=== PATIENT | male | born 1980 | race Caucasian/White ===

== ENCOUNTER 2018-06-24 18:28 | Outpatient (REF) | payer OTHER, SELFPAY ==
[2018-06-24 21:24] LABS: Anion Gap 9.6 mmol/L (3-11); BUN 17 mg/dL (7-18); CO2 26.4 mmol/L (21.0-32.0); CREATININE 1.08 mg/dL (0.70-1.30); Calcium 9.3 mg/dL (8.5-10.1); Chloride 103 mmol/L (98-107); Cholesterol 223 mg/dL (50-200); Glucose 104 mg/dL (70-100); HDL Cholesterol 37 mg/dL (40-60); LDL CHOLESTEROL 156 mg/dL (<100); Potassium 4.6 mmol/L (3.5-5.1); Sodium 139 mmol/L (136-145); Triglyceride 277 mg/dL (30-150)
== END 2018-06-24 18:48 ==
LOC: NCHCN 18:28
PROVIDERS: PCP Specialist/Technologist Athletic Trainer; Visit Provider Specialist/Technologist Athletic Trainer
DX: E78.1 Pure hyperglyceridemia (principal)
CPT/HCPCS: 80048; 80061; 83721

== ENCOUNTER 2019-01-21 18:57 | Emergency (ER) | payer OTHER, SELFPAY ==
[2019-01-21 19:08] VITALS: BP 97/85; PULSE 55; RESP 16; TEMP 36.7; O2SAT 100
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
[2019-01-21] MEDS: Lidocaine 2% Multi-Dose 50 ML VIAL (19:47)
[2019-01-21] MEDS: Bupivacaine 0.5% Pres-Free 30 ML VIAL (19:48)
--- NOTE | 2019-01-21 19:56 | DI.VRAD_ITS ---
EXAM: XR Right Hand EXAM DATE/TIME: 01/21/2019 7:16 PM CLINICAL HISTORY: 38 years old, male; Injury or trauma; Injury history: RT hand crushed in woodsplitter, eval digits 2-4; Initial encounter; Crushing; Right; Injury date: 01/21/2019 TECHNIQUE: Imaging protocol: XR Right hand. Views: 3 or more views. COMPARISON: No relevant prior studies available. FINDINGS: Bones/joints: There is a transverse fracture through the distal metadiaphysis of the index finger middle phalanx with approximately complete shaft width volar displacement of the distal fracture fragment. There is a comminuted and minimally displaced fracture at the tuft of the middle finger distal phalanx. No other acutely displaced fractures are appreciated. No dislocation. Soft tissues: There is soft tissue swelling at the fracture sites. IMPRESSION: 1. Fracture through the distal metadiaphysis of the index finger middle phalanx. 2. Comminuted fracture at the tuft of the middle finger distal phalanx. Dictated and Authenticated by: Naga Carter MD. Ordering:SYD Weinstein MD
--- NOTE | 2019-01-21 20:10 | W.ED.GENAD ---
Discharge Plan Disposition Patient Disposition: HOME Condition: Stable Discharge Details Chief Complaint: Laceration Clinical Impression: Finger laceration, Finger fracture, Tendon injury Primary Care Provider: Caleb Santillan ED Provider: Js Win Home Meds and New Rx's Prescriptions: No Action No Known Home Meds RF: 0 Discharge Instructions Instructions: Finger Fracture (ED), Finger Laceration (ED) Additional Instructions: Do not eat anything after midnight. Dr. Helm will be calling you promptly at 7 AM, do not miss this call. Expect to be here at the hospital at 8 AM. You can take the single dose of Keflex in the morning. Do not take any other food or water otherwise. Take Tylenol and Motrin throughout the night, [place] as needed for pain. If you notice any significant changes in your symptoms, changes in color for your fingertips, please return immediately for reassessment. If your fingertip turns white or blue, return immediately for reassessment. Referrals: Thomas Helm MD [ [facility] STAFF PHYSICIAN] - Medical Decision Making This is a 38-year-old male who is [id number] who presents today for crush injury for his second third and fourth digit on his right nondominant hand. Ironically he states that this is actually as good hand as he is never had previous injuries or surgeries to this hand. Exam demonstrates a dorsal laceration at the middle phalanx on the index finger with rotation and a bit of hanging off. Surprisingly capillary refill was brisk. He also demonstrates notable tenderness at the distal tip of the middle finger with difficulty flexing and extending, suspecting notable tendon injury, he also has a similar injury pattern on the ring finger as well. Concern for tendon damage there as well. Patient's tetanus is been updated here. All 3 fingers were blocked with bupivacaine, total of 15 cc of a 50-50 mixture of 2% lidocaine and 0.5% bupivacaine. He had notable anesthesia after this. Open reduction was performed on the index finger, notable alignment was improved. 3 simple interrupted sutures with 5-0 Ethilon were placed for wound edge reapproximation for the dorsal laceration after a significant amount of time was spent washing out with chlorhexidine and normal saline with high-powered irrigation. Patient tolerated this well. After which all 3 fingers were splinted with a Ortho-Glass splint uniformly over the hand with minimal flexion at 15 to 20 degrees. Patient was given 500 mg of Keflex here, with a pill for 500 mg to take home tomorrow morning. I discussed the case with Dr. Helm, reviewed the images as well as the tendon and sensory findings. He does feel that the patient would benefit from surgery and potential pinning, as well as potential tendon repair for the other fingers. Dr. Helm will call the patient promptly tomorrow morning at 7, with suspected or surgery at 8 AM. He had no other recommendations at this time. The plan was made explicitly clear to the patient and his significant other who is at bedside. All questions were answered. Prior to discharge the distal component of all 3 fingers was rechecked, including the one that was openly reduced. All 3 demonstrated brisk capillary refill, and normal vascular exam. No other questions at this time. All questions were answered. I have extensively reviewed the treatment plan and discharge instructions with the patient and their family. I have addressed all patient concerns at this time. The patient and family was made aware of what symptoms to monitor for that would warrant a return to the emergency department. Discussed the plan with the patient and family, they demonstrate verbal understanding and agreement with our assessment and plan at this time. HPI General Date/Time Provider Initiated Documentation: 01/21/19 19:01. HPI Narrative: This is a 38-year-old male who is [id number], with a past medical history of multiple previous surgeries on the left hand. He presents today for trauma to the right hand. Patient got his index finger middle finger and ring finger stuck in a wood splitter. This occurred roughly 30 minutes prior to arrival. Tetanus is not up-to-date he has notable injury to the index finger, but pain in the other 2. Symptoms are made worse with movement. He is taking no medications in the meantime. He denies any other complaints or modifying factors. He does admit to notable numbness and tingling on 3 fingers. He denies any pain in the wrist, or pinky Related Data Home Medications Medication Instructions Recorded Confirmed Unknown [No Known Home Meds] 10/28/17 01/21/19 Allergies Allergy/AdvReac Type Severity Reaction Status Date / Time No Known Allergies Allergy Unverified 01/21/19 19:19 General Stated Complaint: Laceration ARIN: 3 Review of Systems Review of Systems All systems reviewed & are unremarkable except as noted in HPI and below PFSH Social History Smoking/Tobacco Use Status: Never Alcohol Intake: former Drug use: Never Do you feel safe at home: Yes Do you feel safe in your relationship?: Yes Exam Narrative Exam Narrative: 1.Const: Well-nourished, Well-developed, appearing stated age 2.Eyes: PERRL, no conjunctival injection, and symmetrical lids. 3.ENT: Atraumatic external nose and ears. Moist MM. Neck: Symmetric, trachea midline, No thyromegaly. 4.CVS: +S1/S2, No murmurs or gallops. Peripheral pulses 2+ and equal in all extremities. Brisk capillary refill in all extremities. 5.RESP: Unlabored respiratory effort. Clear to auscultation bilaterally. No wheezes rales or rhonchi 6.GI: Soft, Nontender/Nondistended, No hepatosplenomegaly. No guarding or rebound. 7.MSK: Normocephalic Right hand exam: Index finger demonstrates a notable laceration over the dorsal aspect over the middle phalanx. The finger tip is hanging off to the side and rotated. Surprisingly capillary refill is still present and brisk on the distal tip. Sensation is notably limited. He does have tenderness over the PIP joint. No significant tenderness at the MCP joint. Middle finger demonstrates notable bruising and tenderness over the distal phalanx tip. No subungual hematoma at this time. Notable difficulty flexing and extending at the DIP joint. Patient is able to flex and extend at the PIP and MCP joint. Sensation is also notably decreased in the distal tip, unable to differentiate two-point discrimination on the distal tip. Capillary refill is brisk suspect tendon damage. Ring finger demonstrates a small superficial laceration over the dorsal aspect by the DIP joint. Is able to flex and extend at the PIP and MCP joint but does demonstrate difficulty flexing and extending at the DIP joint. Suspect tendon damage No pain or tenderness over the remainder of the wrist. Thumb and pinky demonstrate good movement for flexion extension abduction and abduction, normal sensation throughout the hand and thumb to place two-point discrimination of the distal tip of the thumb and pinky. 8.Skin: Warm, Dry. Please see musculoskeletal 9.Neuro: horseradish grinder II-XII grossly intact. Please see muscular scale 10.Psych: (AAO) x3. Appropriate mood and affect Course Vital Signs Temperature 36.7 C 01/21/19 19:08 Pulse 55 L 01/21/19 19:08 Respiratory Rate 16 01/21/19 19:08 Blood Pressure 97/85 L 01/21/19 19:08 Pulse Oximetry 100 01/21/19 19:08 Temperature 36.7 C 01/21/19 19:08 Temperature Source Tympanic 01/21/19 19:08 Pulse 55 L 01/21/19 19:08 Respiratory Rate 16 01/21/19 19:08 Respiratory Effort 01/21/19 19:08 Blood Pressure 97/85 L 01/21/19 19:08 Pulse Oximetry 100 01/21/19 19:08 Oxygen Delivery Method Room Air 01/21/19 19:08 Oxygen Flow Rate 0 01/21/19 19:08 Pain Level 10 01/21/19 19:15
--- NOTE | 2019-01-21 20:14 | ED.GENADUL_ITS ---
Discharge Plan Disposition Patient Disposition: HOME Condition: Stable Discharge Details Chief Complaint: Laceration Clinical Impression: Finger laceration, Finger fracture, Tendon injury Primary Care Provider: Caleb Santillan ED Provider: Js Win Home Meds and New Rx's Prescriptions: No Action No Known Home Meds RF: 0 Discharge Instructions Instructions: Finger Fracture (ED), Finger Laceration (ED) Additional Instructions: Do not eat anything after midnight. Dr. Helm will be calling you promptly at 7 AM, do not miss this call. Expect to be here at the hospital at 8 AM. You can take the single dose of Keflex in the morning. Do not take any other food or water otherwise. Take Tylenol and Motrin throughout the night, [place] as needed for pain. If you notice any significant changes in your symptoms, changes in color for your fingertips, please return immediately for reassessment. If your fingertip turns white or blue, return immediately for reassessment. Referrals: Thomas Helm MD [ [facility] STAFF PHYSICIAN] - Medical Decision Making This is a 38-year-old male who is [id number] who presents today for crush injury for his second third and fourth digit on his right nondominant hand. Ironically he states that this is actually as good hand as he is never had previous injuries or surgeries to this hand. Exam demonstrates a dorsal laceration at the middle phalanx on the index finger with rotation and a bit of hanging off. Surprisingly capillary refill was brisk. He also demonstrates notable tenderness at the distal tip of the middle finger with difficulty flexing and extending, suspecting notable tendon injury, he also has a similar injury pattern on the ring finger as well. Concern for tendon damage there as well. Patient's tetanus is been updated here. All 3 fingers were blocked with bupivacaine, total of 15 cc of a 50-50 mixture of 2% lidocaine and 0.5% bupivacaine. He had notable anesthesia after this. Open reduction was performed on the index finger, notable alignment was improved. 3 simple interrupted sutures with 5-0 Ethilon were placed for wound edge reapproximation for the dorsal laceration after a significant amount of time was spent washing out with chlorhexidine and normal saline with high-powered irrigation. Patient tolerated this well. After which all 3 fingers were splinted with a Ortho-Glass splint uniformly over the hand with minimal flexion at 15 to 20 degrees. Patient was given 500 mg of Keflex here, with a pill for 500 mg to take home tomorrow morning. I discussed the case with Dr. Helm, reviewed the images as well as the tendon and sensory findings. He does feel that the patient would benefit from surgery and potential pinning, as well as potential tendon repair for the other fingers. Dr. Helm will call the patient promptly tomorrow morning at 7, with suspected or surgery at 8 AM. He had no other recommendations at this time. The plan was made explicitly clear to the patient and his significant other who is at bedside. All questions were answered. Prior to discharge the distal component of all 3 fingers was rechecked, including the one that was openly reduced. All 3 demonstrated brisk capillary refill, and normal vascular exam. No other questions at this time. All que stions were answered. I have extensively reviewed the treatment plan and discharge instructions with the patient and their family. I have addressed all patient concerns at this time. The patient and family was made aware of what symptoms to monitor for that would warrant a return to the emergency department. Discussed the plan with the patient and family, they demonstrate verbal understanding and agreement with our assessment and plan at this time. HPI General Date/Time Provider Initiated Documentation: 01/21/19 19:01 . HPI Narrative: This is a 38-year-old male who is [id number], with a past medical history of multiple previous surgeries on the left hand. He presents today for trauma to the right hand. Patient got his index finger middle finger and ring finger stuck in a wood splitter. This occurred roughly 30 minutes prior to arrival. Tetanus is not up-to-date he has notable injury to the index finger, but pain in the other 2. Symptoms are made worse with movement. He is taking no medications in the meantime. He denies any other complaints or modifying factors. He does admit to notable numbness and tingling on 3 fingers. He denies any pain in the wrist, or pinky Related Data Home Medications Medication Instructions Recorded Confirmed Unknown [No Known Home Meds] 10/28/17 01/21/19 Allergies Allergy/AdvReac Type Severity Reaction Status Date / Time No Known Allergies Allergy Unverified 01/21/19 19:19 General Stated Complaint: Laceration ARIN: 3 Review of Systems Review of Systems All systems reviewed & are unremarkable except as noted in HPI and below PFSH Social History Smoking/Tobacco Use Status: Never Alcohol Intake: former Drug use: Never Do you feel safe at home: Yes Do you feel safe in your relationship?: Yes Exam Narrative Exam Narrative: 1.Const: Well-nourished, Well-developed, appearing stated age 2.Eyes: PERRL, no conjunctival injection, and symmetrical lids. 3.ENT: Atraumatic external nose and ears. Moist MM. Neck: Symmetric, trachea midline, No thyromegaly. 4.CVS: +S1/S2, No murmurs or gallops. Peripheral pulses 2+ and equal in all extr emities. Brisk capillary refill in all extremities. 5.RESP: Unlabored respiratory effort. Clear to auscultation bilaterally. No wheezes rales or rhonchi 6.GI: Soft, Nontender/Nondistended, No hepatosplenomegaly. No guarding or rebound. 7.MSK: Normocephalic Right hand exam: Index finger demonstrates a notable laceration over the dorsal aspect over the middle phalanx. The finger tip is hanging off to the side and rotated. Surprisingly capillary refill is still present and brisk on the distal tip. Sensation is notably limited. He does have tenderness over the PIP joint. No significant tenderness at the MCP joint. Middle finger demonstrates notable bruising and tenderness over the distal phalanx tip. No subungual hematoma at this time. Notable difficulty flexing and extending at the DIP joint. Patient is able to flex and extend at the PIP and MCP joint. Sensation is also notably decreased in the distal tip, unable to differentiate two-point discrimination on the distal tip. Capillary refill is brisk suspect tendon damage. Ring finger demonstrates a small superficial laceration over the dorsal aspect by the DIP joint. Is able to flex and extend at the PIP and MCP joint but does demonstrate difficulty flexing and extending at the DIP joint. Suspect tendon damage No pain or tenderness over the remainder of the wrist. Thumb and pinky demonstrate good movement for flexion extension abduction and abduction, normal sensation throughout the hand and thumb to place two-point discrimination of the distal tip of the thumb and pinky. 8.Skin: Warm, Dry. Please see musculoskeletal 9.Neuro: radar scientist II-XII grossly intact. Please see muscular scale 10.Psych: (AAO) x3. Appropriate mood and affect Course Vital Signs Temperature 36.7 C 01/21/19 19:08 Pulse 55 L 01/21/19 19:08 Respiratory Rate 16 01/21/19 19:08 Blood Pressure 97/85 L 01/21/19 19:08 Pulse Oximetry 100 01/21/19 19:08 Temperature 36.7 C 01/21/19 19:08 Temperature Source Tympanic 01/21/19 19:08 Pulse 55 L 01/21/19 19:08 Respiratory Rate 16 01/21/19 19:08 Respiratory Effort 01/21/19 19:08 Blood Pressure 97/85 L 01/21/19 19:08 Pulse Oximetry 100 01/21/19 19:08 Oxygen Delivery Method Room Air 01/21/19 19:08 Oxygen Flow Rate 0 01/21/19 19:08 Pain Level 10 01/21/19 19:15
[2019-01-21] MEDS: HYDROcodone 5/Acetaminophen 325 TAB PO (20:33)
[2019-01-21] MEDS: Cephalexin 500 MG CAP PO ×2 (20:35)
== END 2019-01-21 20:50 | disposition home or self-care (01) ==
PROVIDERS: Emergency Provider Student in an Organized Health Care Education/Training Program; PCP Specialist/Technologist Athletic Trainer
DX: S67.22XA Crushing injury of left hand, initial encounter (principal); S62.631A Displaced fracture of distal phalanx of left index finger, initial encounter for closed fracture; S62.633A Displaced fracture of distal phalanx of left middle finger, initial encounter for closed fracture; W31.2XXA Contact with powered woodworking and forming machines, initial encounter
CPT/HCPCS: 26720; 26750; 90471; 73130

== ENCOUNTER 2019-01-22 05:38 | Observation (INO) | payer OTHER, SELFPAY ==
[2019-01-22 08:21] VITALS: BP 112/78; PULSE 61; RESP 16; TEMP 36.7; O2SAT 98
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
[2019-01-22] MEDS: Normal Saline Flush 10 ML SYR IVP (09:45)
[2019-01-22] MEDS: Lactated Ringers 1,000 ML 75 ML IV (10:19)
--- NOTE | 2019-01-22 10:24 | NUR.NOTE ---
Nursing Note: 1015: informed pt and that MD is delayed in OR with another pt and that his procedure may be 1-2 hours from this time.
[2019-01-22 11:28] VITALS: BP 124/72; PULSE 56; RESP 17; TEMP 36.2; O2SAT 98
--- NOTE | 2019-01-22 12:19 | DI.RAD_ITS ---
SYMPTOM/DIAGNOSIS: FRACTURE C-ARM FLUOROSCOPY RIGHT HAND: Fluoroscopy Time: 20 sec Fluoroscopy was provided in the O.R. for Dr. Helm. Please see procedure note for details.
--- NOTE | 2019-01-22 12:26 | DSE_ITS ---
Date of service: 01/22/19 Time of Service: 12:25 DS: Diagnosis Discharge Diagnosis (1) Crushing injury of right hand: Status: Acute (2) Open fracture of middle phalanx of right index finger: Status: Acute Discharge Plan Disposition Patient Disposition: HOME Condition: Good Discharge Details Reason For Visit: R HAND WOODSPLITTER INJURY Admit Date/Time: 01/22/19 05:38 Admit Provider: Thomas Helm Attending Provider: Thomas Helm Primary Care Provider: Caleb Santillan Hospital Course Hospital Course: Vin was brought to the hospital for surgical fixation of a wood splitter crush injury to the right hand. He tolerated the surgery well. Following the procedure he was notably stable and had good pain control. He is thus deemed safe for discharge home. Home Meds and New Rx's Prescriptions: New acetaminophen 500 mg tablet 1,000 mg PO Q8H PRN (Reason: pain) Qty: 90 RF: 3 ibuprofen 600 mg tablet 600 mg PO TID PRNQty: 90 RF: 3 oxycodone 5 mg tablet 5 mg PO Q6H PRN PRNQty: 12 RF: 0 cephalexin 500 mg capsule 500 mg PO QID Qty: 8 RF: 0 Discharge Instructions Additional Instructions: Activity: You should keep the hand elevated as much as possible for the first few days. You may perform light activities with the splint in place. Dressing/Cast: Your splint should stay in place at all times. Do NOT get it wet. You may loosen the RAVINDER wrap if you feel it is too tight and then rewrap m ore loosely. Medications: - You should take Tylenol and Ibuprofen for baseline pain control. - You have Oxycodone for breakthrough pain. - You may apply ice over the fingers. Follow-up: 10 days Referrals: Thomas Helm MD [ [facility] STAFF PHYSICIAN] - Activity:: Activity as Tolerated Equipment/Supplies:: No Equipment Needed Diet:: As Tolerated Discharge Orders Discharge Orders: Discharge Order (Routine); Ordered 01/22/19 Ordered By: Thomas Helm DS: Data Vitals/I&O Vitals and I&O: Vital Signs Temperature 36.7 C 01/22/19 08:21 Pulse 61 01/22/19 08:21 Pulse Rhythm Regular 01/22/19 08:21 Respiratory Rate 16 01/22/19 08:21 Respiratory Effort 01/22/19 08:21 Respiratory Depth Normal 01/22/19 08:21 Respiratory Pattern Normal 01/22/19 08:21 Blood Pressure 112/78 01/22/19 08:21 Pulse Oximetry 98 01/22/19 08:21 Oxygen Delivery Method Room Air 01/22/19 08:21 Oxygen Flow Rate 0 01/22/19 08:21 Pain Level 0 01/22/19 08:21 Comment 01/22/19 08:31 Intake & Output 01/21/19 01/22/19 01/22/19 23:59 11:59 23:59 Weight 120.202 kg Other: Urine Appearance Clear PFSH Social History Smoking/Tobacco Use Status: Never Alcohol Intake: former Drug use: Never Do you feel safe at home: Yes Do you feel safe in your relationship?: Yes
[2019-01-22] MEDS: Bupivacaine 0.5% Pres-Free 30 ML VIAL (12:58)
[2019-01-22 14:21] VITALS: BP 92/52; PULSE 64; RESP 18; TEMP 35.2; O2SAT 96
--- NOTE | 2019-01-22 14:21 | NUR.NOTE ---
Nursing Note: 1410: pt arrives to room 229 via stretcher from the OR. pt is drowsy but arouseable. pt is alert/oriented. pt has IV in LH with LR @ 75cc per hour. pt has eamon wrap with splint to right hand which exhibits a small amount of moisture through the eamon wrap. no evidence of blood. fingertips are pink to red. see vs for information. pt given water which he is able to drink without difficulty. pt's spouse updated by the MD at the bedside; all questions answered. pt will need note for work upon discharge. continue to monitor.
[2019-01-22] MEDS: Acetaminophen 500 MG TAB 1000 MG PO (14:46)
[2019-01-22 15:32] VITALS: BP 92/60; PULSE 56; RESP 16; TEMP 35.4; O2SAT 98
--- NOTE | 2019-01-24 11:00 | ROE_ITS ---
REPORT OF OPERATIVE PROCEDURE DATE OF SURGERY January 22, 2019 PREOPERATIVE DIAGNOSIS Right index finger partial amputation. POSTOPERATIVE DIAGNOSIS Right index finger partial amputation. SURGERY Open reduction and percutaneous pinning of a middle phalanx fracture of the right index finger, exten sor tendon mechanism repair and laceration closure. SURGEON Thomas Helm M.D. NITROGLYCERIN DISTRIBUTOR David Robbins PA-C ANESTHESIA General. ESTIMATED BLOOD LOSS Minimal. COMPLICATIONS None. DISPOSITION The patient was awakened from sedation and taken back to the hospital room in stable condition. INDICATIONS FOR PROCEDURE Vin is a 38-year old who got his right hand impaled by the mall of a wood splitter. He had a notable deformity of his index finger with a laceration. He was seen in the Emergency Department last night where he was diagnosed with a partial amputation of the right index finger complicated by extensor te ndon injury and middle phalanx fracture. He also had injury of his middle and ringer fingers, but the se were not open. His index finger was operative. He did have a perfused distal tip. After reviewing the treatment options with Vin, I recommended surgical stabilization with attempted repair of the ex tensor mechanism and any other vital structures which were deemed necessary at that time. I reviewed the risk of the procedure to include bleeding, infection, pain, stiffness, numbness, malun ion, nonunion, pin site infection, failure to heal needing further procedures, loss of extension, nee d to repeat procedures. Despite these risks, he elected to proceed. PROCEDURE DESCRIPTION Vin was greeted in the preoperative holding area. His identify was confirmed and the correct side wa s marked and his history and physical was updated prior to coming down stairs for the Operating Room. The consent was reviewed with the patient and signed prior to proceeding to the Operating Room. He was then taken back to the Operating Room, placed in the supine position. The right hand was place d on the hand table. A nonsterile tourniquet was placed high up on the right arm, but it was not used . A general anesthetic was begun. Prophylactic antibiotics in the form of cefazolin were given. A maksim eout was performed for safe surgery. The dressings on the right arm were removed. The hand was prepped with Betadine and then draped in a standard fashion. The incision of his right index finger was approximately 2 cm in length running obl iquely from the proximal aspect of the DIP joint radially to the distal aspect of the PIP joint ulnar ly. This was incised in a longitudinal fashion on the ulnar proximal aspect and the distal radial asp ect. With this opened up, the wound was thoroughly debrided. There was no gross debris or contaminati on. The fracture was easily identifiable. The fracture was cleaned of any debris and early fracture h ealing and hematoma. It was grossly unstable and did not want to stay in a reduced position. It took some effort to get this to stay in the reduced position. Two crossing 0.035 K-wires were then used t o hold it in this position. The wood splitter seemed to have removed some tissue. There was some impa ction of the bone, which deformed the bone and made alignment somewhat difficult to re-align complete ly and there was also what appeared to be some bone missing primarily from the ulnar aspect of the fr acture. Once this was pinned in position, it was confirmed to be in a good position on the x-ray. The se K-wires were started outside of the laceration. The extensor tendon was then further identified. The distal aspect was easily identifiable, but the tendon in between the two lateral bands and the di stal extensor tendon was frayed. Most of the tendon was not cut cleanly, but was in strands. The radi al lateral band was in better condition. Based on the location of the K-wires, I was unable to hypere xtend the finger, although the finger was in a neutral position. Using a #3-0 Ethibond, I reapproxima sanket the ulnar to radial lateral band. I then brought this tissue in approximation to the distal stump of the extensor tendon. Unfortunately, it was not the entire width of the tendon, there were only so me strands, as again, there almost appeared to be tissue loss in this area. Strands of the extensor tendon were in contact. This was then thoroughly irrigated. The incision was then closed with #4-0 Ny mitra. Large bites were used to obtain as much tissue as possible, to also help hold the finger in an extended position with this dorsal laceration and incision. The wires were bent and the Jurgan ball w as placed. Final x-rays were obtained. The wound was dressed with Xeroform, 4x4s and Webril. Since th e index, middle and ring finger were injured, I placed him into a volar resting splint in an intrinsi c Plus position. At the end of the case, all counts were correct. He was transferred back to the hosp ital room in stable condition.
== END 2019-01-22 15:47 | disposition home or self-care (01) ==
PROVIDERS: Admitting Provider Student in an Organized Health Care Education/Training Program; PCP Specialist/Technologist Athletic Trainer; Visit Provider Student in an Organized Health Care Education/Training Program
PROC: 0PST04Z Reposition Right Finger Phalanx with Internal Fixation Device, Open Approach (ICD-10-PCS; CPT 26735; principal; 2019-01-22 07:35)
PROC: 0PST04Z Reposition Right Finger Phalanx with Internal Fixation Device, Open Approach (ICD-10-PCS; CPT 26735; 2019-01-22 07:35)
DX: S67.21XA Crushing injury of right hand, initial encounter (principal); S62.620B Displaced fracture of middle phalanx of right index finger, initial encounter for open fracture; S66.320A Laceration of extensor muscle, fascia and tendon of right index finger at wrist and hand level, initial encounter; W31.89XA Contact with other specified machinery, initial encounter; G89.18 Other acute postprocedural pain
CPT/HCPCS: 26735; 26418; 99223; NC; 73120; G0378; J0690; J1885; J2250

== ENCOUNTER 2019-01-26 10:03 | Outpatient (CLI) | payer OTHER, SELFPAY ==
--- NOTE | 2019-01-26 10:02 | DI.RAD_ITS ---
SYMPTOMS/DIAGNOSIS: F/U OPEN REDUCTION AND PINNING OF RT INDEX FINGER RIGHT INDEX FINGER: Pin fixation of a fracture of the proximal phalanx of the index finger is identified. The fracture fragments in excellent apposition and alignment. At the margin of the image again noted is a fracture at the tuft of the middle phalanx.
== END 2019-01-26 10:23 ==
PROVIDERS: PCP Specialist/Technologist Athletic Trainer; Visit Provider Student in an Organized Health Care Education/Training Program
DX: S62.620B Displaced fracture of middle phalanx of right index finger, initial encounter for open fracture (principal)
CPT/HCPCS: 73140

== ENCOUNTER 2019-02-14 15:27 | Outpatient (CLI) | payer OTHER, SELFPAY ==
--- NOTE | 2019-02-14 15:30 | DI.RAD_ITS ---
SYMPTOM/DIAGNOSIS: F/U FX RIGHT INDEX FINGER: Three views were obtained and show a previously described pin fixation of fracture of the middle phalanx of the index finger with no gross interval change in alignment of the fracture fragments in comparison with previous examination of 01/26/19.
== END 2019-02-14 15:47 ==
PROVIDERS: PCP Specialist/Technologist Athletic Trainer; Visit Provider Physician Assistant
DX: S62.620D Displaced fracture of middle phalanx of right index finger, subsequent encounter for fracture with routine healing (principal)
CPT/HCPCS: 73140

== ENCOUNTER 2019-02-17 14:06 | Outpatient (CLI) | payer OTHER, SELFPAY ==
--- NOTE | 2019-02-17 10:49 | DI.RAD_ITS ---
SYMPTOMS/DIAGNOSIS: F/U RIGHT INDEX FINGER FX RIGHT INDEX FINGER: Three views. Comparison 02/14/19. The percutaneous pins have been removed. There is again seen a transverse fracture through the middle phalanx of the right index finger. Since the prior examination, the alignment has changed. There is no anterior dislocation of the distal fracture one-half shaft's width. There is associated soft tissue swelling.
== END 2019-02-17 14:26 ==
PROVIDERS: Visit Provider Student in an Organized Health Care Education/Training Program
DX: S62.620D Displaced fracture of middle phalanx of right index finger, subsequent encounter for fracture with routine healing (principal)
CPT/HCPCS: 73140

== ENCOUNTER 2019-02-23 13:58 | Outpatient (CLI) | payer OTHER, SELFPAY ==
--- NOTE | 2019-02-23 11:00 | DI.RAD_ITS ---
SYMPTOMS/DIAGNOSIS: F/U INJURY RIGHT INDEX FINGER: When compared with the previous study of 02/17, again noted is the fracture of the distal metaphysis of the middle phalanx. There is mild lateral angulation and lateral displacement of the distal fragment.
== END 2019-02-23 14:18 ==
PROVIDERS: PCP Specialist/Technologist Athletic Trainer; Visit Provider Student in an Organized Health Care Education/Training Program
DX: S62.620 Displaced fracture of middle phalanx of right index finger (principal)
CPT/HCPCS: 73140

== ENCOUNTER 2019-02-25 05:58 | Day surgery (SDC) | payer OTHER, SELFPAY ==
[2019-02-25 06:07] VITALS: BP 112/67; PULSE 62; RESP 18; TEMP 36.2; O2SAT 97
--- NOTE | 2019-02-25 06:30 | PDOC.DSDIS_ITS ---
Discharge Plan Disposition Patient Disposition: HOME Condition: Good Discharge Details Reason For Visit: RIF MIDDLE PHALANX FX Attending Provider: Thomas Helm Primary Care Provider: Caleb Santillan Home Meds and New Rx's Prescriptions: New hydrocodone-acetaminophen 5-325 mg tablet 1 tab PO Q4H PRN (Reason: pain) Qty: 10 RF: 0 Continued ibuprofen 600 mg tablet 600 mg PO TID PRN (Reason: pain) Qty: 90 RF: 3 acetaminophen 500 mg tablet 1,000 mg PO Q8H PRN (Reason: pain) Qty: 90 RF: 3 Discharge Instructions Additional Instructions: Activity: You should keep the hand/finger elevated as much as possible for the first few days. You may use the other fingers as tolerated but avoid trying to do too much too soon. You may perform light activities with the dressing in place. Dressing/Cast: Your dressing and splint should stay in place at all times. Do NOT get it wet for the first 3 days. You may remove the initial dressing at that time and keep it covered until your follow-up appointment. You may cover it with a large bandaid or gauze and a wrap. You do not have to keep using a splint but should at least have it luci-taped. Medications: - You should take Tylenol and Ibuprofen for baseline pain control. - You have been prescribed a stronger pain medication, Hydrocodone, for breakthrough pain. - You may apply ice, just double bag so it doesn't get wet. Follow-up: 7-10 days Referrals: Thomas Helm MD [ [facility] STAFF PHYSICIAN] - Activity:: Elevate Remove Dressings/Wound Care:: 72 hours Shower/Bathe:: 72 hours Diet:: As Tolerated Discharge Orders Discharge Orders: Discharge Order (Routine); Ordered 02/25/19 Ordered By: Thomas Helm DS: Diagnosis Discharge Diagnosis (1) Crushing injury of right hand: Status: Acute (2) Open fracture of middle phalanx of right index finger: Status: Acute
[2019-02-25] MEDS: Lactated Ringers 1,000 ML 80 ML IV (07:02)
[2019-02-25] MEDS: ceFAZolin 2 GM/50 ML BAG IVPB (07:04)
--- NOTE | 2019-02-25 08:30 | DI.RAD_ITS ---
SYMPTOM/DIAGNOSIS: ORIF FINGER FX RIGHT INDEX FINGER IN O.R.: Fluoroscopy Time: 5.5 sec, 3.9439 mGy. Fluoroscopy was utilized by Dr. Helm during the reduction and internal fixation of the fracture involving the middle phalanx of the right index finger. Please refer to the procedure report for complete details.
[2019-02-25] MEDS: Bupivacaine 0.5% Pres-Free 30 ML VIAL (08:31)
[2019-02-25 09:08] VITALS: BP 104/64; PULSE 66; RESP 16; TEMP 35.6; O2SAT 100
--- NOTE | 2019-02-28 10:05 | ROE_ITS ---
DATE OF PROCEDURE: February 25, 2019 PREOPERATIVE DIAGNOSIS: Right index finger open fracture, extensor tendon injury right index finger. POSTOPERATIVE DIAGNOSIS: Same. SURGERY: Open reduction and internal fixation of right index finger middle phalanx fracture with ext ensor retinacular repair and DIP extension pinning. SURGEON: Thomas Helm M.D. MAJOR ASSEMBLY LINEMAN: Leny Diaz PA-C ANESTHESIA: General with local anesthetic. ESTIMATED BLOOD LOSS: Minimal. COMPLICATIONS: None. DISPOSITION: The patient was awakened from anesthesia and taken to the PACU in a stable condition. INDICATION FOR PROCEDURE: Vin is a 38-year-old who suffered a wood splitter injury to his right bond d. He had an open fracture with loss of extensor tendon over the right index finger. This was irrig ated and debrided at the time of injury. It was cross-pinned and a tendon repair of the extensor mec hanism was attempted. The wound healed. The pins were in for 3 1/2 weeks. Without concern of not h ealing the pins were removed. He did well for a few days but then two days after the pins were pulle d, he felt something shift in the hand. It was then noted that the fracture had displaced. This was reduced in the office and then it displaced again. He still had a droop of his finger. Given this injury I did offer surgical stabilization. I reviewed the risks of the procedure to include bleeding , infection, pain, stiffness, damage to nerves and vessels, damage to muscles and tendons, need for r epeat procedures, hardware prominence, hardware failure. Despite these risks he elected to proceed. PROCEDURE DESCRIPTION: Vin was greeted in the preoperative holding area. His identity was confirme d and the correct side was identified and marked. The consent was reviewed with the patient and sign ed. The history and physical was updated. The patient was taken back to the Operating Room. He was placed in the supine position with the right hand on the hand table. A non-sterile tourniquet was p laced high up on the right arm where it stayed for sixty minutes. The dressing was removed then the right hand was prepped with ChloraPrep and draped in a standard fashion. A time-out was performed f or safe surgery. Prophylactic antibiotics in the form of Cefazolin were given. The limb was then exsanguinated and the tourniquet was inflated 275 mmHg. It stayed there for sixty minutes. The previous incision was then opened up sharply. This was taken down to the extensor tiss ue. The majority of the extensor tendon was noted to be damaged or lost at the previous surgery on t he day or injury. There was some reconstitution of this extensor mechanism through scarring. It was protected but it was quite friable. This was sharply debrided off of the underlying middle phalanx to expose the fracture. Subperiosteally this was exposed and the fracture was easily identifiable. The soft tissue over the dorsum of the middle phalanx was exposed all the way down to insertion of th e central slip. The fracture edges were debrided and cleaned. The wound was thoroughly irrigated. A manual reduction was performed. This visually seemed to be reduced quite nicely with the contour o f the dorsoradial ridge lining up between distal and proximal fragments. This was pinned for provisi onal stabilization. The x-ray was used to confirm the reduction, which showed some slight ulnar painting slation. The flexion and extension had been improved. This was manipulated quite a few times, but i t still seemed to just back to this position. In the current position it had excellent bony contact. Therefore, this was accepted. With the pin in place for stabilization, a 1.3 mm luciano plate was then placed. The plate was contoured and cut to length. It was then placed over the dorsal aspect of th e middle phalanx. It was held in position with a clamp and a single non-locking screw was placed in the oblong hole. This allowed some manipulation of the plate positioning. The plate was then moved into appropriate position where it was not too distal. X-ray was used to confirm appropriate positio jacqueline. I then placed three locking screws on the distal segment. These were confirmed to not be intr aarticular based on x-ray. With these on appropriate position, I then impacted the fracture and tigh tened the oblong screw hole. One additional non-locking screw was placed proximal to this oblong hol e. And the most-proximal screw was placed as a locking screw so as not to penetrate the far cortex a nd the flexor tendons. The wound was then irrigated. The fracture was stable. There was still a si gnificant amount of drooping. I was trying to reapproximate any extensor tissue that was available. There was some very small piece off the distal phalanx and some remnant tissue seen from the lateral bands and the extensor cespedes from the middle phalanx. However, given the droop of the finger this wa s very difficult to reapproximate. Therefore, I placed a pin from the distal phalanx into the middle phalanx, keeping the finger DIP joint in extension. This allowed reapproximation of some of the ext ensor tissue. A #2-0 FiberWire was used to reapproximate these tissues. The wound was irrigated. T he skin was then closed with a #4-0 Nylon. A digital block with 0.5% Bupivacaine was performed. At the end of the case all counts were correct. The wound was dressed with Xeroform, 4x4's and a confor m dressing. He was awakened from anesthesia and taken to the PACU in a stable condition.
== END 2019-02-25 09:24 | disposition home or self-care (01) ==
PROVIDERS: PCP Specialist/Technologist Athletic Trainer; Visit Provider Student in an Organized Health Care Education/Training Program
PROC: (CPT 26735; principal; 2019-02-25 07:00)
DX: S67.21XA Crushing injury of right hand, initial encounter (principal); S62.620 Displaced fracture of middle phalanx of right index finger; S56.421A Laceration of extensor muscle, fascia and tendon of right index finger at forearm level, initial encounter; W31.89XA Contact with other specified machinery, initial encounter
CPT/HCPCS: 26735; 26418; 73140; J0690; J2405

== ENCOUNTER 2019-03-02 11:13 | Outpatient (CLI) | payer OTHER, SELFPAY ==
--- NOTE | 2019-03-02 10:57 | DI.RAD_ITS ---
SYMPTOM/DIAGNOSIS: 1ST POST OP RIGHT INDEX FINGER: Three views. Comparison 02/25/19 There are side plates and screws seen transfixing the fracture involving the middle phalanx of the right index finger. A percutaneous pin is also seen transfixing the fracture in the distal interphalangeal joint. No change in alignment of the orthopaedic hardware is noted.
== END 2019-03-02 11:33 ==
PROVIDERS: PCP Specialist/Technologist Athletic Trainer; Visit Provider Student in an Organized Health Care Education/Training Program
DX: S62.632D Displaced fracture of distal phalanx of right middle finger, subsequent encounter for fracture with routine healing (principal)
CPT/HCPCS: 73140

== ENCOUNTER 2019-03-09 15:45 | Outpatient (CLI) | payer OTHER, SELFPAY ==
--- NOTE | 2019-03-09 15:42 | DI.RAD_ITS ---
SYMPTOMS/DIAGNOSIS: F/U RIGHT INDEX FINGER OPEN REDUCTION AND INTERNAL FIXATION RIGHT INDEX FINGER: The postoperative images demonstrate a plate and screw fixation device affixed to the fracture of the distal metaphysis of the middle phalanx, the fracture components in excellent position. A pin is noted traversing the distal phalanx, and interphalangeal joint and proximal and mid portion of the middle phalanx.
== END 2019-03-09 16:05 ==
PROVIDERS: PCP Specialist/Technologist Athletic Trainer; Visit Provider Student in an Organized Health Care Education/Training Program
DX: S62.620D Displaced fracture of middle phalanx of right index finger, subsequent encounter for fracture with routine healing (principal)
CPT/HCPCS: 73140

== ENCOUNTER 2019-03-23 15:55 | Outpatient (CLI) | payer OTHER, SELFPAY ==
--- NOTE | 2019-03-23 15:35 | DI.RAD_ITS ---
SYMPTOMS/DIAGNOSIS: F/U RIGHT INDEX FINGER OPEN REDUCTION AND INTERNAL FIXATION RIGHT INDEX FINGER: Comparison is made with February,. A fixation plate is seen in the middle phalanx. A pin remains in place through the distal to middle phalanx. The fracture and hardware alignment are unchanged.
== END 2019-03-23 16:15 ==
PROVIDERS: PCP Specialist/Technologist Athletic Trainer; Visit Provider Student in an Organized Health Care Education/Training Program
DX: S62.620B Displaced fracture of middle phalanx of right index finger, initial encounter for open fracture (principal)
CPT/HCPCS: 73140

== ENCOUNTER 2019-04-06 15:38 | Outpatient (CLI) | payer OTHER, SELFPAY ==
--- NOTE | 2019-04-06 15:40 | DI.RAD_ITS ---
SYMPTOM/DIAGNOSIS: F/U FRACTURE RIGHT INDEX FINGER: There is again seen a side plate and screws transfixing the fracture of the middle phalanx of the right index finger. A percutaneous pin is seen extending through both the middle and distal phalanges. No change in alignment of the orthopaedic hardware or fracture components is noted.
== END 2019-04-06 15:58 ==
PROVIDERS: PCP Specialist/Technologist Athletic Trainer; Visit Provider Student in an Organized Health Care Education/Training Program
DX: S62.620D Displaced fracture of middle phalanx of right index finger, subsequent encounter for fracture with routine healing (principal)
CPT/HCPCS: 73140

== ENCOUNTER 2019-04-25 15:21 | Outpatient (CLI) | payer OTHER, SELFPAY ==
--- NOTE | 2019-04-25 15:13 | DI.RAD_ITS ---
EXAM: XR FINGER RT INDEX CLINICAL HISTORY: F/U FX TECHNIQUE: Three views were obtained. COMPARISON: Comparison is made with 04/06/19. FINDINGS: Previously described fixation pin has been removed from the index finger and fixation plate and screw s remain with no gross interval change in alignment of the fracture fragments of the middle phalanx i n comparison with the previous examination. IMPRESSION:
== END 2019-04-25 15:41 ==
PROVIDERS: PCP Specialist/Technologist Athletic Trainer; Visit Provider Student in an Organized Health Care Education/Training Program
DX: S62.620D Displaced fracture of middle phalanx of right index finger, subsequent encounter for fracture with routine healing (principal)
CPT/HCPCS: 73140

== ENCOUNTER 2019-06-20 15:52 | Outpatient (CLI) | payer OTHER, SELFPAY ==
--- NOTE | 2019-06-20 15:49 | DI.RAD_ITS ---
EXAM: XR FINGER RT INDEX INDICATION: f/u index finger fx. COMPARISON: XR FINGER RT INDEX from 04/25/2019 TECHNIQUE: 2D digital imaging was performed. FINDINGS: There is again seen a sideplate and screws transfixing the fracture of the middle phalanx of the righ t index finger. There has been no change in alignment of the orthopaedic hardware or fracture compon ents compared to the prior examination. The fracture line is still well visualized. No new fracture s or dislocations are present.
== END 2019-06-20 16:12 ==
PROVIDERS: PCP Specialist/Technologist Athletic Trainer; Visit Provider Student in an Organized Health Care Education/Training Program
DX: S62.620D Displaced fracture of middle phalanx of right index finger, subsequent encounter for fracture with routine healing (principal)
CPT/HCPCS: 73140

== ENCOUNTER 2019-08-20 20:56 | Emergency (ER) | payer OTHER, SELFPAY ==
[2019-08-20] VITALS (13 sets, daily range): BP systolic 113–135; BP diastolic 56–79; PULSE 72–99; RESP 17–26; TEMP 36.8; O2SAT 91–99
--- NOTE | 2019-08-20 21:12 | ED.GENADUL_ITS ---
Discharge Plan Disposition Patient Disposition: [facility] Condition: Serious Discharge Details Chief Complaint: Trauma Clinical Impression: Intracranial hemorrhage Primary Care Provider: Caleb Santillan ED Provider: Oleg Lucio Home Meds and New Rx's Prescriptions: No Action ibuprofen 600 mg tablet 600 mg PO TID PRN (Reason: pain) Qty: 90 RF: 3 acetaminophen 500 mg tablet 1,000 mg PO Q8H PRN (Reason: pain) Qty: 90 RF: 3 Medical Decision Making 39 yo male with prior c spine fx per pt years ago comes in after he slipped from standing on ice this mroning and struck back of his head, unsure of loc and has had worsening headache and neck pain since. No chest pain, abd pain, extremity pain. He has pain in left lateral neck, no stepoffs. He struck the posterior head and has small 2cm abrasion. EOMI, no trauma to the face, full rom of mandible without malalignment. Given increasing pain will obtain ct head/cspine pt has intracranial hemorrhage on CT and possible fx of inferioranterior osteophyte of c6. Remains stable with gcs of 15, will consult with trauma at [facility] Dr. Garcia from trauma at [facility] accepts in transfer, pt remains stable gcs of 15 Differential Diagnosis Differential Diagnosis: tbi, concussion, strain, fx Imaging Data Radiologic Study: Attestation: I personally reviewed and interpreted this imaging study as follows: Imaging: CT Scan Radiologist's impression: IMPRESSION: 1. Acute intracranial hemorrhages as detailed above. 2. Nondisplaced obliquely oriented fracture of the left parietal bone and squamosal portion of the left temporal bone. IMPRESSION: Questionable nondisplaced acute fracture of the inferior anterior osteophyte of C6. No subluxation HPI General Mode of arrival: ambulatory . Date/Time Provider Initiated Documentation: 08/20/19 21:02 . Limitations to Documentation: no limitations . Information obtained by: patient . History of Present Illness 39 year old M presents to the emergency department with the chief complaint of head pain, described as moderate, Quality is described as aching, Patient started experiencing this hour(s) (12) and it has been constant. No relieving factors improve symptom(s), No exacerbating factors reported . Patient did receive the following treatments prior to arrival, NSAID Related Data Home Medications Medication Instructions Recorded Confirmed acetaminophen 500 mg tablet 1,000 mg PO Q8H PRN #90 tab 01/22/19 04/25/19 ibuprofen 600 mg tablet 600 mg PO TID PRN #90 tab 01/22/19 08/20/19 Previous Rx's Medication Instructions Recorded acetaminophen 500 mg tablet 1,000 mg PO Q8H PRN #90 tab 01/22/19 ibuprofen 600 mg tablet 600 mg PO TID PRN #90 tab 01/22/19 Allergies Allergy/AdvReac Type Severity Reaction Status Date / Time No Known Allergies Allergy Verified 08/20/19 21:09 General Stated Complaint: Trauma ARIN: 3 Review of Systems All systems reviewed & are unremarkable except as noted in HPI and below Constitutional Constitutional: Denies chills, Denies fever(s) and Denies weakness ENT Ears, Nose, Mouth, and Throat: Denies change in voice Cardiovascular Cardiovascular: Denies chest pain and Denies dyspnea Respiratory Respiratory: Denies dyspnea Gastrointestinal Gastrointestinal: Denies abdominal pain, Denies nausea and Denies vomiting Musculoskeletal Musculoskeletal: Denies joint swelling Neurologic Neurologic: Denies weakness [facility], [facility] Medical History (Updated 02/25/19 @ 06:12 by Joseph Brandt) Laceration of thumb with tendon involvement (Acute) PT. STATES THUMB LACERATION WITH TENDON REPAIR SURGERY IN 2010. Surgical History (Updated 03/09/19 @ 18:10 by Leny Diaz) Hx of cervical spine surgery (Acute) c6,c5,c7 Social History Smoking/Tobacco Use Status: Current every day Tobacco Type: smokeless tobacco Alcohol Intake: former Drug use: Never Substance use type: does not use Current gender identity: male Do you feel safe at home: Yes Do you feel safe in your relationship?: Yes Exam Const General: no acute distress Orientation: alert HENMT Head: no palpable skull fracture Ears: external ears normal General nose exam: external nose normal Mouth: moist mucous membranes Eyes General: appearance normal, both eyes and all related structures Neck Neck: normal visual inspection Resp Effort & Inspection: normal respiratory effort and able to speak in complete sentences Cardio Rate: regular rate Skin General skin exam: no rashes or lesions noted Neuro General: alert and oriented x3 Extrem General: normal to inspection Psych Mental Status: mental status grossly normal Course Vital Signs Vital signs: Vital Signs Temperature 36.8 C 08/20/19 21:06 Pulse 99 H 08/20/19 21:06 Respiratory Rate 18 08/20/19 21:06 Blood Pressure 135/79 08/20/19 21:06 Pulse Oximetry 99 08/20/19 21:06 Temperature 36.8 C 08/20/19 21:06 Temperature Source Skin 08/20/19 21:06 Pulse 99 H 08/20/19 21:06 Respiratory Rate 18 08/20/19 21:06 Blood Pressure 135/79 08/20/19 21:06 Blood Pressure Position Sitting 08/20/19 21:06 Pulse Oximetry 99 08/20/19 21:06 Oxygen Delivery Method Room Air 08/20/19 21:06 Oxygen Flow Rate 0 08/20/19 21:06 Pain Level 10 08/20/19 21:06
--- NOTE | 2019-08-20 21:22 | DI.CT_ITS ---
EXAM: CT HEAD CERVICAL SPINE WO CLINICAL HISTORY: pain s/p fall COMPARISON: No exams were available for comparison FINDINGS: CT head: There is acute intracranial hemorrhage noted. There is an acute subdural hemorrhage along the left f rontal parietal, occipital and temporal bones. It measures 5 millimeters in maximal thickness. The subacute hemorrhage extends to involve the tentorium cerebelli measuring 4 millimeters in thickness. There is also extension into the interhemispheric fissure which measures 5 millimeters in thickness . There is resultant effacement of the adjacent sulci in the left frontal, temporal and parietal lob es. No significant midline shift is appreciated. There is a small amount of subarachnoid hemorrhage best appreciated in the left temporal lobe. There is an area of encephalomalacia involving the right frontal lobe. The ventricles are intact. The basilar cisterns are patent. There is an oblique fracture which is nondisplaced beginning posteriorly in the left parietal bone, e xtending inferiorly and anteriorly to involve the left temporal bone. There is mucosal thickening in the maxillary sinuses bilaterally, right greater than left. The remai jacqueline visualized paranasal sinuses are clear. There is soft tissue swelling over the left scalp. CT cervical spine: There is patient motion artifact. Postsurgical changes are seen in the cervical spine from C3 throug h C6. Degenerative changes are seen in the spine. The odontoid is intact. The lateral masses appea r well aligned. There is a lucency seen through the base of an anterior osteophyte at the inferior e ndplate of C6. This may represent a nondisplaced fracture. No other fracture or subluxation is iden tified. The prevertebral soft tissues are unremarkable. The lung apices are clear. IMPRESSION: 1. Acute intracranial hemorrhage as described above. There is subarachnoid and subdural hemorrhage p resent. 2. Nondisplaced fracture involving the left parietal and temporal bones as described above. 3. Soft tissue swelling over the left scalp. 4. Lucency through the base of an anterior osteophyte at C6. This may represent a nondisplaced fract ure.
[2019-08-20] MEDS: Acetaminophen 500 MG TAB 1000 MG PO (21:30)
[2019-08-20] MEDS: fentaNYL 100 MCG/2 ML VIAL IVP (21:50)
--- NOTE | 2019-08-20 21:53 | DI.VRAD_ITS ---
PROCEDURE INFORMATION: Exam: CT Head Without Contrast Exam date and time: 08/20/2019 9:12 PM Age: 39 years old Clinical indication: Injury or trauma; Initial encounter; Blunt trauma (contusions or hematomas); Prior surgery; Patient HX: S/P fall TECHNIQUE: Imaging protocol: Computed tomography of the head without contrast. COMPARISON: No relevant prior studies available. FINDINGS: Brain: Small amount left temporal acute subarachnoid hemorrhage. Acute subdural hematoma layering along the interhemispheric fissure measuring 5 mm in thickness. Acute subdural hematoma layering along the left tentorium cerebelli measuring 4 mm. Left holohemispheric acute subdural hematoma measuring 5 mm in thickness. Minimal mass effect on the left cerebrum with no appreciable midline shift. Inferior right frontal encephalomalacia. No evidence for acute transcortical infarct. No acute intraparenchymal hemorrhage. Basal cisterns are patent. Ventricles: Normal. No ventriculomegaly. Bones/joints: Nondisplaced obliquely oriented fracture of the left parietal bone and squamosal portion of the left temporal bone. Sinuses: Mucosal thickening involving the maxillary sinuses. Mastoid air cells: Visualized mastoid air cells are well aerated. Soft tissues: Left scalp swelling. IMPRESSION: 1. Acute intracranial hemorrhages as detailed above. 2. Nondisplaced obliquely oriented fracture of the left parietal bone and squamosal portion of the left temporal bone. THIS REPORT CONTAINS FINDINGS THAT MAY BE CRITICAL TO PATIENT CARE. The findings were verbally communicated via telephone conference with Oleg Lucio at 9:45 PM EST on 08/20/2019. The findings were acknowledged and understood. PROCEDURE INFORMATION: Exam: CT Cervical Spine Without Contrast Exam date and time: 08/20/2019 9:12 PM Age: 39 years old Clinical indication: Injury or trauma; Initial encounter; Blunt trauma (contusions or hematomas); Prior surgery; Patient HX: S/P fall TECHNIQUE: Imaging protocol: Computed tomography images of the cervical spine without contrast. COMPARISON: No relevant prior studies available. FINDINGS: Vertebrae: Questionable nondisplaced acute fracture of the inferior anterior osteophyte of C6. No subluxation. No spondylolisthesis. The atlantooccipital and atlantoaxial articulations are intact. Cervical spine fusion hardware. Facet joint alignments are maintained. Discs/Spinal canal/Neural foramina: Age-related degenerative disc disease. Multilevel degenerative changes of the cervical spine. Other bones/joints: Occipital condyles are intact. Soft tissues: Unremarkable. Lungs: Lung apices are normal. IMPRESSION: Questionable nondisplaced acute fracture of the inferior anterior osteophyte of C6. No subluxation. The findings were verbally communicated via telephone conference with Oleg Lucio at 9:45 PM EST on 08/20/2019. The findings were acknowledged and understood. Dictated and Authenticated by: Piotr Núñez MD. Ordering:DIVINE Dejesus MD
[2019-08-20] MEDS: Normal Saline Flush 10 ML SYR IVP (22:08)
[2019-08-20 22:18] LABS: Abs Immature Grans 0.04 k/cumm (0.0-0.09); Absolute Basophil Count 0.01 k/cumm (0.0-0.2); Absolute Eosinophil Count 0.01 k/cumm (0.0-0.7); Absolute Lymphocyte Count 1.66 k/cumm (1.2-3.4); Absolute Monocyte Count 0.75 k/cumm (0.11-0.7); Basophils % 0.1; Eosinophils % 0.1; HGB 15.1 g/dL (13.5-17.5); Immature Grans % 0.4 %; Lymphocytes % 14.6; Mean Corp. HGB Concentration 34.3 g/dL (32.0-36.0); Mean Corpuscular Hemoglobin 29.4 pg (27.0-33.0); Mean Corpuscular Volume 85.6 fL (80-95); Mean Platelet Volume 8.9 fL (8.0-11.0); Monocytes % 6.6; Neutrophils % 78.2; Platelet Count 380 x1000/uL (130-400); RBC 5.14 m/cumm (4.50-6.00); RBC Distribution Width 13.4 % (11.8-14.1); White Blood Cell Count 11.38 k/cumm (4.4-10.8)
[2019-08-20] MEDS: HYDROmorphone 2 MG/ML VIAL 1 MG IVP (22:24)
[2019-08-20] MEDS: Ondansetron 4 MG/2 ML VIAL IVP (22:25)
[2019-08-20 22:28] LABS: ALT 54 U/L (16-63); AST 21 U/L (15-37); Albumin 4.3 g/dL (3.4-5.0); Alkaline Phosphatase 82 U/L (46-116); Anion Gap 11.8 mmol/L (3-11); BUN 15 mg/dL (7-18); Bilirubin, Total 0.7 mg/dL (0.2-1.0); CO2 25.2 mmol/L (21.0-32.0); CREATININE 0.95 mg/dL (0.70-1.30); Calcium 9.1 mg/dL (8.5-10.1); Chloride 103 mmol/L (98-107); Glucose 113 mg/dL (74-106); PTT Activated 25.1 sec (21.0-31.4); Potassium 4.1 mmol/L (3.5-5.1); Prothrombin Time 10.5 sec (9.3-11.0); Sodium 140 mmol/L (136-145)
[2019-08-20 22:38] LABS: ETHANOL BLOOD < 3.0 mg/dL (<3)
[2019-08-20] MEDS: HYDROmorphone 2 MG/ML VIAL (22:58)
== END 2019-08-20 23:05 | disposition short-term general hospital (02) ==
PROVIDERS: Emergency Provider Emergency Medicine; PCP Specialist/Technologist Athletic Trainer
DX: M54.2 Cervicalgia (principal); R51 Headache; S09.90XA Unspecified injury of head, initial encounter; S06.5X0A Traumatic subdural hemorrhage without loss of consciousness, initial encounter; S06.6X0A Traumatic subarachnoid hemorrhage without loss of consciousness, initial encounter; S02.0XXA Fracture of vault of skull, initial encounter for closed fracture; S02.19XA Other fracture of base of skull, initial encounter for closed fracture; W00.0XXA Fall on same level due to ice and snow, initial encounter
CPT/HCPCS: 36415; 80053; 96374; 96375; 99285; 70450; 72125; 80320; 85025; 85610; 85730; J2405; J3010; J3490; L0172

== ENCOUNTER 2019-09-01 19:04 | Emergency (ER) | payer OTHER, SELFPAY ==
[2019-09-01 19:12] VITALS: BP 132/80; PULSE 74; RESP 17; TEMP 39.9; O2SAT 97
--- NOTE | 2019-09-01 19:29 | ED.GENADUL_ITS ---
Discharge Plan Disposition Patient Disposition: HOME Condition: Good Discharge Details Chief Complaint: Orthopedic Clinical Impression: Left thigh pain Primary Care Provider: Caleb Santillan ED Provider: Js Win Home Meds and New Rx's Prescriptions: New hydrocodone-acetaminophen [Waverly] 10-325 mg tablet 1 tab PO Q8H PRN (Reason: pain) Qty: 7 RF: 0 Discontinued acetaminophen 500 mg tablet 1,000 mg PO Q8H PRN (Reason: pain) Qty: 90 RF: 3 hydrocodone-acetaminophen 5-325 mg Tablet 1 tab PO Q6H PRN PRNRF: 0 Discharge Instructions Instructions: Leg Pain (ED) Additional Instructions: Please follow-up tomorrow for your ultrasound of your leg. Please take the Waverly as needed. Please use a heating pad to help with the pain. If you notice any worsening of your symptoms, or any new symptoms such as vomiting, diarrhea, fever, chills, shortness of breath, chest pain, numbness, weakness, or fainting , please return immediately to the emergency department for reevaluation. Please follow up with your primary care provider as soon as possible for reassessment and reevaluation. As always, it was a pleasure participating in your medical care today. Referrals: Caleb Santillan [Primary Care Provider] - Discharge Data Discharge Date/Time-TO BE ENTERED AT DEPARTURE: 09/01/19 21:35 Medical Decision Making This is a 39-year-old male with a past medical history of previous i ntracranial hemorrhage less than 2 weeks that occurred after a fall, for which she was transferred to [facility], had serial imaging studies, eventually she was discharged a few days ago. When he fell on the he struck his head, and had an intracranial bleed, he was transferred to [facility] and managed there. Since then he has had pain in his left jaw, as well as pain in his left thigh going from his left hip to his left knee. Is worse with ambulation and movement. No pain when just lying calmly. He has not taken any of his prescribed narcotics at this time. He denies any associated numbness or tingling. Exam is notably unremarkable, no evidence of redness warmth swelling or abnormality. He has normal strength normal sensation. No signs of cauda equina syndrome. No evidence of cellulitis or infection. Normal vascular exam peripherally with dorsalis pedis +2 bilaterally, and brisk capillary refill and normal sensation. Bedside limited ultrasound shows no evidence of significant DVT, however this is certainly just a limited exam and not complete. We will get x-rays to evaluate for acute fracture and reassess. And schedule outpatient ultrasonography to be performed during the day. X-ray results per virtual radiology show no evidence of acute fracture of the thigh, hip, or mandible. After 4 mg of IM morphine the patient is feeling much better. He is still shows no evidence of significant neurologic or vascular deficit. He feels well. Do feel that he is stable to go home. No clinical evidence of compartment syndrome, all compartments are soft. He may have a small intramuscular hematoma that cannot be visualized or seen now. No clinical evidence for CT imaging at this time. We will schedule an outpatient DVT ultrasound of his left extremity tomorrow for formal assessment in addition to the limited bedside assessment as completed tonight. We did discuss risks and benefits of anticoagulation therapy in the meantime, and with the patient's recent brain bleed this would be a notable contraindication. With no other concerning physical exam red flags I do feel they can discharge. Patient will be discharged home with close follow-up. Discussed red flags which return. Will prescribe a very small amount of Waverly for help with the pain. I have extensively reviewed the treatment plan and discharge instructions with the patient and their family. I have addressed all patient concerns at this time. The patient and family was made aware of what symptoms to monitor for that would warrant a return to the emergency department. Discussed the plan with the patient and family, they demonstrate verbal understanding and agreement with our assessment and plan at this time. FINDINGS: Sinuses: Well aerated. No opacification. Bones/joints: No fracture. Mandible and temporomandibular joints maintained. Prior cervical spine surgery. Dental: Extensive dental work. No periapical lucencies to suggest periapical abscess. Soft tissues: Unremarkable. IMPRESSION: Unremarkable. Thank you for allowing us to participate in the care of your patient. Dictated and Authenticated by: Trace Moy DO 09/01/2019 8:16 PM Eastern Time ([place] & [place]) FINDINGS: Bones/joints: Degenerative changes in visualized spine. No acute fracture. No subluxation. Soft tissues: Unremarkable. IMPRESSION: No acute findings. Thank you for allowing us to participate in the care of your patient. Dictated and Authenticated by: Trace Moy DO 09/01/2019 8:03 PM Eastern Time ([place] & [place]) FINDINGS: Bones/joints: Unremarkable. No acute fracture. Soft tissues: Unremarkable. IMPRESSION: No acute findings. Thank you for allowing us to participate in the care of your patient. Dictated and Authenticated by: Trace Moy DO 09/01/2019 8:03 PM Eastern Time ([place] & [place]) HPI General Date/Time Provider Initiated Documentation: 09/01/19 19:06 . HPI Narrative: This is a 39-year-old male with a past medical history of previous intracranial hemorrhage less than 2 weeks that occurred after a fall, for which she was transferred to [facility], had serial imaging studies, eventually she was discharged a few days ago. When he fell on the he struck his head, and had an intracranial bleed, he was transferred to [facility] and managed there. Since then he has had pain in his left jaw, as well as pain in his left thigh going from his left hip to his left knee. Is worse with ambulation and movement. No pain when just lying calmly. He has not taken any of his prescribed narcotics at this time. He denies any associated numbness or tingling. He does admit to his continued headaches since he was first admitted at [facility] but no change in this otherwise. He denies any other complaints at this time. No other modifying factors. Related Data Home Medications Medication Instructions Recorded Confirmed hydrocodone-acetaminophen [Waverly] 1 tab PO Q8H PRN #7 tab 09/01/19 Previous Rx's Medication Instructions Recorded hydrocodone-acetaminophen [Waverly] 1 tab PO Q8H PRN #7 tab 09/01/19 Allergies Allergy/AdvReac Type Severity Reaction Status Date / Time No Known Allergies Allergy Verified 08/20/19 21:09 General Stated Complaint: Orthopedic ARIN: 3 Review of Systems All systems reviewed & are unremarkable except as noted in HPI and below PFSH Medical History (Updated 02/25/19 @ 06:12 by Joseph Brandt) Laceration of thumb with tendon involvement (Acute) PT. STATES THUMB LACERATION WITH TENDON REPAIR SURGERY IN 2010. Surgical History (Updated 03/09/19 @ 18:10 by Leny Diaz) Hx of cervical spine surgery (Acute) c6,c5,c7 Social History Smoking/Tobacco Use Status: Current every day Tobacco Type: smokeless tobacco Alcohol Intake: former Drug use: Never Substance use type: does not use Current gender identity: male Do you feel safe at home: Yes Do you feel safe in your relationship?: Yes Exam Narrative Exam Narrative: 1.Const: Well-nourished, Well-developed, appearing stated age 2.Eyes: PERRL, no conjunctival injection, and symmetrical lids. 3.ENT: Atraumatic external nose and ears. Moist MM. Neck: Symmetric, trachea midline, No thyromegaly. Mild tenderness in the jaw, primarily over the angle of the mandible bilaterally. He demonstrates notable tooth saw boss strength. No other abnormalities. 4.CVS: +S1/S2, No murmurs or gallops. Peripheral pulses 2+ and equal in all extremities. Brisk capillary refill in all extremities. 5.RESP: Unlabored respiratory effort. Clear to auscultation bilaterally. No wheezes rales or rhonchi 6.GI: Soft, Nontender/Nondistended, No hepatosplenomegaly. No guarding or rebound. 7.MSK: Normocephalic/Atraumatic, Extremities w/o deformity. No cyanosis or clubbing, Normal movement of all extremities. Normal strength in the left thigh, subjective mild tenderness on palpation of the anterior medial thigh. No significant swelling, redness, warmth, or asymmetry. Patient demonstrates normal strength in all extremities including the left lower extremity. 5 out of 5 strength for all movement. Normal sensation throughout, no saddle anesthesia . No tenderness over the greater trochanter. No other abnormalities. 8.Skin: Warm, Dry. No rashes or lesions. 9.Neuro: hazardous substances scientist II-XII grossly intact. Sensation grossly intact, no focal neurologic deficits. 10.Psych: (AAO) x3. Appropriate mood and affect Course Vital Signs Vital signs: Vital Signs Temperature 39.9 C H 09/01/19 19:12 Pulse 74 09/01/19 19:12 Respiratory Rate 17 09/01/19 19:12 Blood Pressure 132/80 09/01/19 19:12 Pulse Oximetry 97 09/01/19 19:12 Temperature 39.9 C H 09/01/19 19:12 Temperature Source Skin 09/01/19 19:12 Pulse 74 09/01/19 19:12 Respiratory Rate 17 09/01/19 19:12 Respiratory Effort 09/01/19 19:12 Blood Pressure 132/80 09/01/19 19:12 Pulse Oximetry 97 09/01/19 19:12 Oxygen Delivery Method Room Air 09/01/19 19:12 Oxygen Flow Rate 0 09/01/19 19:12 Pain Level 0 09/01/19 19:12
--- NOTE | 2019-09-01 19:42 | NUR.NOTE ---
Nursing Note: Pt taken to xray.
--- NOTE | 2019-09-01 19:50 | DI.RAD_ITS ---
EXAM: XR PELVIS AP CLINICAL HISTORY: fall, left hip and thigh pain TECHNIQUE: COMPARISON: XR FEMUR LT from 09/01/2019 FINDINGS: AP view of the pelvis and four views of the left femur were obtained. No fracture is seen. IMPRESSION:
--- NOTE | 2019-09-01 20:00 | DI.RAD_ITS ---
EXAM: XR MANDIBLE COMPLETE CLINICAL HISTORY: left jaw pain TECHNIQUE: COMPARISON: No exams were available for comparison FINDINGS: Five views of the mandible were obtained and show no evidence of fracture. IMPRESSION:
--- NOTE | 2019-09-01 20:03 | DI.VRAD_ITS ---
PROCEDURE INFORMATION: Exam: XR Left Femur Exam date and time: 09/01/2019 7:57 PM Age: 39 years old Clinical indication: Injury or trauma; Fall; Initial encounter; Blunt trauma; Injury date: 09/01/19; Injury details: Left hip and thigh pain TECHNIQUE: Imaging protocol: XR Left femur. Views: 2 views. COMPARISON: No relevant prior studies available. FINDINGS: Bones/joints: Unremarkable. No acute fracture. Soft tissues: Unremarkable. IMPRESSION: No acute findings. Dictated and Authenticated by: Trace Moy MD. Ordering:SYD Weinstein MD
--- NOTE | 2019-09-01 20:03 | DI.VRAD_ITS ---
PROCEDURE INFORMATION: Exam: XR Pelvis Exam date and time: 09/01/2019 7:57 PM Age: 39 years old Clinical indication: Injury or trauma; Initial encounter; Blunt trauma (contusions or hematomas); Injury date: 09/01/19; Injury details: Fall, left hip and thigh pain TECHNIQUE: Imaging protocol: XR pelvis. Views: 1 or 2 view. COMPARISON: No relevant prior studies available. Comparison is made to concurrent x-ray study of the left femur. FINDINGS: Bones/joints: Degenerative changes in visualized spine. No acute fracture. No subluxation. Soft tissues: Unremarkable. IMPRESSION: No acute findings. Dictated and Authenticated by: Trace Moy MD. Ordering:SYD Weinstein MD
--- NOTE | 2019-09-01 20:16 | DI.VRAD_ITS ---
PROCEDURE INFORMATION: Exam: XR Left Mandible, Minimum of 4 Views, Complete Exam date and time: 09/01/2019 7:57 PM Age: 39 years old Clinical indication: Patient HX: Patient sts left sided jaw pain x2 weeks. unable to chew food. TECHNIQUE: Imaging protocol: XR of the Left mandible, minimum of 4 views. Complete exam. COMPARISON: No relevant prior studies available. FINDINGS: Sinuses: Well aerated. No opacification. Bones/joints: No fracture. Mandible and temporomandibular joints maintained. Prior cervical spine surgery. Dental: Extensive dental work. No periapical lucencies to suggest periapical abscess. Soft tissues: Unremarkable. IMPRESSION: Unremarkable. Dictated and Authenticated by: Trace Moy MD. Ordering:SYD Weinstein MD
[2019-09-01 20:20] VITALS: BP 115/63; PULSE 72; RESP 16; O2SAT 98
[2019-09-01 20:52] VITALS: BP 115/63; PULSE 72; RESP 16; O2SAT 98
== END 2019-09-01 21:35 | disposition home or self-care (01) ==
PROVIDERS: Emergency Provider Student in an Organized Health Care Education/Training Program; PCP Specialist/Technologist Athletic Trainer
DX: M79.652 Pain in left thigh (principal); R68.84 Jaw pain; W00.0XXA Fall on same level due to ice and snow, initial encounter
CPT/HCPCS: 73552; 96374; 99284; 70110; 72170; 99285

== ENCOUNTER 2019-09-02 08:56 | Outpatient (CLI) | payer OTHER, SELFPAY ==
--- NOTE | 2019-09-02 12:29 | DI.US_ITS ---
EXAM: US LOWER EXTREMITY VENOUS LT US LOWER EXTREMITY VENOUS LT CLINICAL HISTORY: MID THIGH PAIN, R/O DVT. MID THIGH PAIN, R/O DVT TECHNIQUE: Ultrasound performed using standard protocol. COMPARISON: No exams were available for comparison FINDINGS: Duplex venous ultrasound was performed according to the usual protocol. The deep veins are freely com pressible throughout and there is normal flow augmentation with manual calf compression. 2D and Doppl er evaluation are unremarkable. IMPRESSION: No evidence of deep venous thrombosis of the lower extremity
== END 2019-09-02 09:16 ==
PROVIDERS: PCP Specialist/Technologist Athletic Trainer; Visit Provider Student in an Organized Health Care Education/Training Program
DX: M79.652 Pain in left thigh (principal)
CPT/HCPCS: 93971

== ENCOUNTER 2019-09-02 12:52 | Emergency (ER) | payer OTHER, SELFPAY ==
[2019-09-02 12:58] VITALS: BP 128/79; PULSE 59; RESP 18; TEMP 36.1; O2SAT 96
--- NOTE | 2019-09-02 13:16 | ED.GENADUL_ITS ---
Discharge Plan Disposition Patient Disposition: HOME Condition: Stable Discharge Details Chief Complaint: Recheck Clinical Impression: Left leg pain Primary Care Provider: Caleb Santillan ED Provider: Caleb Roberson Home Meds and New Rx's Prescriptions: No Action hydrocodone-acetaminophen [[place]] 10-325 mg tablet 1 tab PO Q8H PRN (Reason: pain) Qty: 7 RF: 0 Discharge Instructions Instructions: Leg Pain (ED) Additional Instructions: 1. Drink plenty of fluids. 2. Continue all medications as prescribed. 3. Acetaminophen 1000mg every 4 hours (up to 5 time a day) and/or ibuprofen 600mg every 6 hours as needed for fever or pain. 4. Warm compresses. Activity as tolerated. Return to the Emergency Department (ED) if your condition worsens, does not improve as expected, or for ANY other concerns. Specifically, return if you have new or uncontrolled pain, worsening fever, difficulty breathing, vomiting, or are unable to drink fluids. Discharge Data Discharge Date/Time-TO BE ENTERED AT DEPARTURE: 09/02/19 13:14 Medical Decision Making Patient returns after an outpatient evaluation of his lower extremity by DVT ultrasound. Had been evaluated here yesterday evening with a limited bedside DVT study performed and negative. Comprehensive study also negative with no evidence of DVT or soft tissue injury. Clinical exam suggestive of hamstring strain. Discussed sonographic and clinical findings with patient was discharged with a plan for OTC analgesia and outpatient follow-up. Given usual customary return instructions prior to discharge. Medical Records Medical records reviewed: Yes I reviewed the patient's medical records. HPI 39 gentleman with a past medical history which includes previous cervical spine trauma and a recent traumatic ICH. He was admitted for management at [facility]. Since that event, he has had persistent left jaw pain and pain in his left gluteal/posterior upper leg region. Pain is worsened with walking or positional change as well as direct palpation. He has had no associated leg weakness or peripheral numbness or tingling. He was evaluated here yesterday with a bedside DVT study negative for evidence of acute pathology including no DVT ap preciated. Discharged with plan for outpatient comprehensive DVT imaging this morning. Study performed here and negative for any acute pathology including reiteration of no DVT. On assessment, he has persistent pain which she notes in the posterior aspect of his left upper leg from his gluteal region to his popliteal fossa. General Date/Time Provider Initiated Documentation: 09/02/19 13:09 . Related Data Home Medications Medication Instructions Recorded Confirmed hydrocodone-acetaminophen [[place]] 1 tab PO Q8H PRN #7 tab 09/01/19 Previous Rx's Medication Instructions Recorded hydrocodone-acetaminophen [[place]] 1 tab PO Q8H PRN #7 tab 09/01/19 Allergies Allergy/AdvReac Type Severity Reaction Status Date / Time No Known Allergies Allergy Verified 08/20/19 21:09 General Stated Complaint: Recheck ARIN: 4 Review of Systems All systems reviewed & are unremarkable except as noted in HPI and below PFSH Medical History Laceration of thumb with tendon involvement (Acute) PT. STATES THUMB LACERATION WITH TENDON REPAIR SURGERY IN 2010. Surgical History Hx of cervical spine surgery (Acute) c6,c5,c7 Social History Smoking/Tobacco Use Status: Current every day Tobacco Type: smokeless tobacco Alcohol Intake: former Drug use: Never Substance use type: does not use Current gender identity: male Do you feel safe at home: Yes Do you feel safe in your relationship?: Yes Exam Narrative Exam Narrative: Nursing note and vital signs have been reviewed and noted. GENERAL: alert, active, no acute distress, well -hydrated, well-nourished HEENT: atraumatic/normocephalic, PERRLA, EOMI, conjunctiva clear, external ears/canals normal, nasal mucosa normal NECK: supple, full range of motion CARDIOVASCULAR: nl pulses, no edema PULMONARY: nl effort, no audible wheezing or stridor ABDOMEN: non-distended EXTREMITY: normal muscle tone, tenderness along the posterior aspect of the left leg from the gluteus to the popliteal fossa in the distribution of hamstring. No other tenderness appreciated laterally or ventrally. Normal peripheral neurovascular exam NUERO: normal mentation, moving all extremities, normal stance and gait, PSYCH: alert and oriented SKIN: no new rashes or lesions Course Vital Signs Vital signs: Vital Signs Temperature 97.0 F L 09/02/19 12:58 Pulse 59 L 09/02/19 12:58 Respiratory Rate 18 09/02/19 12:58 Blood Pressure 128/79 09/02/19 12:58 Pulse Oximetry 96 09/02/19 12:58 Temperature 97.0 F L 09/02/19 12:58 Temperature Source Skin 09/02/19 12:58 Pulse 59 L 09/02/19 12:58 Respiratory Rate 18 09/02/19 12:58 Respiratory Effort Non-Labored 09/02/19 13:03 Blood Pressure 128/79 09/02/19 12:58 Blood Pressure Position Sitting 09/02/19 12:58 Pulse Oximetry 96 09/02/19 12:58 Oxygen Delivery Method Room Air 09/02/19 12:58 Oxygen Flow Rate 0 09/02/19 12:58 Pain Level 8 09/02/19 12:58
--- NOTE | 2019-09-02 16:41 | NUR.NOTE ---
Nursing Note: During discharge process pt presented short term disability eligibility paperwork requesting to be filled out. Pt states his PCP was Dr. Santillan at [facility] but he's no longer there- last seen at there clinic within the past year. Pt was advised that PCP Office fills out that paperwork as they will be the ones to follow up with him in the future. Advised pt to call [facility] upon discharge to make a follow up appointment. Pt verbalized understanding and was discharged without any further questions.
== END 2019-09-02 13:14 | disposition home or self-care (01) ==
LOC: ER 13:18
PROVIDERS: Emergency Provider Emergency Medicine; PCP Specialist/Technologist Athletic Trainer
DX: M79.652 Pain in left thigh (principal); Z71.2 Person consulting for explanation of examination or test findings
CPT/HCPCS: 99281

== ENCOUNTER 2019-10-10 14:17 | Outpatient (CLI) | payer OTHER, SELFPAY ==
--- NOTE | 2019-10-10 13:15 | DI.RAD_ITS ---
EXAM: XR FINGER RT INDEX INDICATION: RIGHT INDEX FINGER ?PROMINENT HARDWARE. COMPARISON: XR FINGER RT INDEX from 06/20/2019 TECHNIQUE: 2D digital imaging was performed. FINDINGS: A screw and plate fixation is again noted along the dorsal aspect of the middle phalanx for fracture fixation. The fracture remains faintly visible. There are stable degenerative changes of the distal interphalangeal joint. DATA REPOSITORY: RADIATION DOSE DELIVERED:
== END 2019-10-10 14:37 ==
PROVIDERS: PCP Specialist/Technologist Athletic Trainer; Visit Provider Physician Assistant
DX: S62.620D Displaced fracture of middle phalanx of right index finger, subsequent encounter for fracture with routine healing (principal)
CPT/HCPCS: 73140

== ENCOUNTER 2020-04-13 03:03 | Outpatient (CLI) | payer OTHER, SELFPAY ==
[2020-04-15 17:56] LABS: COVID-19 RT-PCR Result NEGATIVE (Negative)
== END 2020-04-13 03:23 ==
PROVIDERS: PCP Specialist/Technologist Athletic Trainer; Visit Provider Student in an Organized Health Care Education/Training Program
DX: T84.84XA Pain due to internal orthopedic prosthetic devices, implants and grafts, initial encounter (principal); Z01.818 Encounter for other preprocedural examination
CPT/HCPCS: U0003

== ENCOUNTER 2020-04-18 10:37 | Day surgery (SDC) | payer OTHER, SELFPAY ==
[2020-04-18 11:00] VITALS: BP 114/73; PULSE 60; RESP 17; TEMP 36.2; O2SAT 98
[2020-04-18] MEDS: Lactated Ringers 1,000 ML 80 ML IV (11:30)
--- NOTE | 2020-04-18 11:36 | W.PREOPHP ---
Date of service: 04/18/20 Time of Service: 11:36 Assessment and Plan Assessment and plan (1) Painful orthopaedic hardware: Status: Acute Assessment and plan: Vin is a 39-year-old who has painful hardware from the right index finger fracture. He also has stiffness from the bridging osteophyte over the volar surface of the DIP joint. I previously discussed the treatment options with time. Given the failure of conservative options he desires these to be fixed surgically. This would require removal of hardware, minimum screws with possible plate, as well as resection of the bridging osteophyte of the DIP joint. I reviewed the risk of the procedure to include bleeding, infection, pain, stiffness, continued restriction of motion, damage to nerves and vessels, damage to muscles and tendons. Despite these risks, he elects to proceed. (2) Stiffness of finger joint of right hand: Status: Acute History of Present Illness History of Present Illness Chief Complaint: Right Index Finger Pain Narrative: Vin is a 39-year-old man who had a injury to his right index finger which required fixation with plate and screws. He is done well but has notable stiffness and pain from the hardware. He is is some prominence screw to be removed and for the bony bridging osteophyte to be resected. This is discussed at length in October but due to COVID-19 him to leave the surgery until today. He denies any medical issues. Review of Systems All systems reviewed & are unremarkable except as noted in HPI and below PFSH Medical History Intracranial hemorrhage (Acute 08/20/19) Laceration of thumb with tendon involvement (Acute) PT. STATES THUMB LACERATION WITH TENDON REPAIR SURGERY IN 2010. Surgical History Hx of cervical spine surgery (Acute) c6,c5,c7 Hx of hand surgery (Acute) R index finger Family History Other Cancer Diabetes Social History Smoking/Tobacco Use Status: Current every day Tobacco Type: smokeless tobacco Alcohol Intake: former Drug use: Never Substance use type: does not use Details: no smokeless tobacco since 04/17/20 Current gender identity: male Do you feel safe at home: Yes Do you feel safe in your relationship?: Yes Meds Home Medications and Allergies Home Medications Medication Instructions Recorded Confirmed Type acetaminophen [Tylenol Extra 500 mg PO Q6H PRN #30 tab 04/18/20 Rx Strength] acetaminophen [Tylenol] 650 mg PO ONCE PRN 04/18/20 04/18/20 History hydrocodone-acetaminophen [[place]] 1 tab PO Q6H PRN #10 tab 04/18/20 Rx ibuprofen 600 mg PO TID #30 tab 04/18/20 Rx Allergies Allergy/AdvReac Type Severity Reaction Status Date / Time No Known Allergies Allergy Verified 04/18/20 10:42 Exam Const General: cooperative and healthy appearing Orientation: alert, awake and oriented x3 Resp Effort & Inspection: normal respiratory effort Auscultation: clear to auscultation bilaterally Cardio Rate: regular rate Rhythm: regular rhythm Results Last Vital Signs Temp 36.2 C L 04/18/20 11:00 Pulse 60 04/18/20 11:00 Resp 17 04/18/20 11:00 BP 114/73 04/18/20 11:00 Pulse Ox 98 04/18/20 11:00
[2020-04-18] MEDS: Sodium Bicarbonate 50 MEQ/50 ML VIAL (11:50)
[2020-04-18] MEDS: Lidocaine 1% Multi-Dose 50 ML VIAL (11:50)
--- NOTE | 2020-04-18 12:42 | ROE_ITS ---
Date of service: 04/18/20 Time of Service: 12:42 Operative Note Operative Note DATE OF PROCEDURE: 04/18/20 PRE-OP DIAGNOSIS: Painful hardware and DIP stiffness, Right Index Finger POST-OP DIAGNOSIS: same PROCEDURE: Removal of hardware and capsular release of DIP joint - RIGHT INDEX FINGER SURGEON: Thomas Helm SEWER INSPECTOR: Jess Martin ANESTHESIA: MAC and local ESTIMATED BLOOD LOSS: 20 TOURNIQUET TIME: 10 COMPLICATIONS: None Patient was transported to: same day Patient's condition: stable Indications: 39-year-old who suffered an open fracture of middle phalanx with extensive injury to the extensor tendon which required operative intervention on February 25, 2019. He has been able to return to work and he has had bony union. However, he had prominence of the hardware and notably most radial screw. In addition he had no passive nor active motion of the DIP joint. He tried to treat this conservatively and give it time but it continues to bother. Discussed hardware removal as well as bone spur removal and release of the DIP joint. I was very honest that this may not improve his motion. The painful prominence of the hardware will improve. However, it is possible of the extensor tendon, which was significantly injured may be affected by a secondary surgery. I also reviewed the risk of bleeding and infection, worsening droop. Is likely his risk, he like to proceed. Findings: The most radial screw in the distal aspect the plate was very prominent was able to be moved up difficulty. The remainder of the screws were removed as well as the plate. The extensor tendon had a scar formation attached to the plate which was disrupted by accessing the plate. There is no true tendon that was in this area. From a radial approach I was able to penetrate DIP joint with a Cresco and perform a capsule release using that and a knife allowing motion from 0 to 40 degrees of the DIP joint. Procedure Description: Vin was greeted in the preoperative holding area. His identity was confirmed and the correct side was identified and marked. The consent was reviewed the patient and signed. History and physical was updated. He is taken back to the operating room placed in supine position with a right head on the hand table. No prophylactic antibiotics were given given a clean hand procedure. A timeout was performed for safe surgery. The index finger palmar surface was cleaned with a ChloraPrep. A digital block was administered using 10 cc of 1% lidocaine buffered with sodium bicarbonate. The hand was then fully prepped with ChloraPrep and draped in a standard fashion. The finger was exsanguinated with pressure and a Tarik tourniquet was administered. The previous incision was utilized extending from the most distal aspect to the PIP joint. The skin was incised sharply. A suture from the previous extensor tendon repair was encountered. Using both nice and scissors this plane between the subcutaneous tissue was elevated. There was no clear distinction between these 2 planes and the extensor mechanism was scarred against the plate and the overlying subcutaneous tissue. Once this plane was established, there is no structural extensor tendon remaining except for some thickened scar. The plate was encountered. This scar which was in the location of the extensor tendon was protected. The screws from the plate were removed and the plate was removed. Attention was then turned to the DIP joint. A Cresco was inserted from the radial ulnar aspect. I then used a knife to excise any capsular adhesions. Gentle motion was sequentially tried and was noted to be tethered by the scar tissue of the back of the DIP joint. Continued to release this tissue and freed the joint with a Cresco. Manual manipulation of the IP joint then toward the adherent scar tissue from the dorsum of the index finger allow the DIP joint to move for approximately 0 to 40 degrees. There is no clear extensor mechanism to repair. The joint was once again inspected radiographically and visually and appear to be free. The wounds and irrigated. The Tarik tourniquet was released. The skin was then reapproximated with a #3-0 nylon. A soft tube gauze dressing was applied after Xeroform. At any case all counts are correct. He tolerated the procedure well. He is transferred back to the same-day surgery area in stable condition.
--- NOTE | 2020-04-18 12:53 | PDOC.DSDIS_ITS ---
Discharge Plan Disposition Patient Disposition: HOME Condition: Stable Discharge Details Reason For Visit: Orthopedic Hardware Removal, Right Hand Attending Provider: Thomas Helm Primary Care Provider: Caleb Santillan Home Meds and New Rx's Prescriptions: New acetaminophen [Tylenol Extra Strength] 500 mg tablet 500 mg PO Q6H PRNQty: 30 RF: 0 ibuprofen 600 mg tablet 600 mg PO TID Qty: 30 RF: 0 hydrocodone-acetaminophen [[place]] 5-325 mg tablet 1 tab PO Q6H PRN (Reason: pain) Qty: 10 RF: 0 No Action acetaminophen [Tylenol] 325 mg Capsule 650 mg PO ONCE PRNRF: 0 Discharge Instructions Additional Instructions: Activity: Keep the finger and hand elevated. You may use the hand as tolerated with the dressing on. Dressing: Keep the dressing clean and dry. Try to keep it on and in place until your follow-up. However, if it gets wet or dirtied, just remove and cover witha bandaid. Medications: Take Ibuprofen and Acetaminophen for baseline pain. Hydrocodone for breakthrough pain. Follow-up: Thursday Referrals: Thomas Helm MD [ [facility] STAFF PHYSICIAN] - Activity:: Activity as Tolerated Remove Dressings/Wound Care:: Do Not Remove Shower/Bathe:: 24 hours Diet:: As Tolerated Discharge Orders Discharge Orders: Discharge Order (Routine); Ordered 04/18/20 Ordered By: Jess Martin DS: Diagnosis Discharge Diagnosis (1) Painful orthopaedic hardware: Status: Acute (2) Stiffness of finger joint of right hand: Status: Acute
[2020-04-18 13:07] VITALS: BP 137/84; PULSE 61; RESP 16; TEMP 36.2; O2SAT 100
== END 2020-04-18 13:25 | disposition home or self-care (01) ==
PROVIDERS: PCP Specialist/Technologist Athletic Trainer; Visit Provider Student in an Organized Health Care Education/Training Program
PROC: (CPT 26525; principal; 2020-04-18 12:30)
DX: T84.84XA Pain due to internal orthopedic prosthetic devices, implants and grafts, initial encounter (principal); M25.641 Stiffness of right hand, not elsewhere classified
CPT/HCPCS: 26525; 20680; NC; 76000; J1885; J2250